=== PATIENT | female | born 1990 | race Caucasian/White ===

== ENCOUNTER 2017-11-14 10:28 | Observation (INO) | payer MEDICAID ==
[~2017-11-14] VITALS: Ht 152.4 cm; Wt 59.0 kg
[2017-11-14] MEDS ORDERED: PREN-57 MT (11:11)
[2017-11-14] MEDS ORDERED: FERR-71 MT (11:13)
== END 2017-11-14 15:50 | disposition home or self-care (01) ==
LOC: L&D 10:28
PROVIDERS: ADMIT Specialist; ATTEND Specialist
DX: O26.892 Other specified pregnancy related conditions, second trimester (principal); R10.9 Unspecified abdominal pain; M54.5 Low back pain; Z3A.32 32 weeks gestation of pregnancy
CPT/HCPCS: 76805; 76818; 99281; G0378

== ENCOUNTER 2020-05-23 11:13 | Emergency (ER) | payer MEDICAID ==
[~2020-05-23] VITALS: Ht 162.6 cm; Wt 60.0 kg
[~2020-05-23 11:13] MED LIST: FERR-71 MT; PREN-57 MT
[2020-05-23] MEDS ORDERED: ACETAMINOPHEN 325MG TABLET PO ONE (12:15)
[2020-05-23] MEDS ORDERED: LIDOCAINE HCL/EPINEPHRINE 1%-EPI 1:100,000 20 ML VIAL INFIL ONE (12:30)
[2020-05-23] MEDS ORDERED: MORPHINE SULFATE 4 MG/ML CPJ (NOT FOR IM USE) IV ONE (12:30)
[2020-05-23 13:04] LABS: BASOPHILS % 0.2 % (0.0-2.0); EOSINOPHILS % 1.1 % (0.0-5.0); HEMATOCRIT. 41.2 % (36.0-48.0); HEMOGLOBIN. 14.1 g/dL (12.0-16.0); LYMPHOCYTES % 15.4 % (20.0-50.0); MEAN CORPUSCULAR HEMOGLOBIN 30.3 pg (28.0-32.0); MEAN CORPUSCULAR VOLUME 88.9 fL (81.0-99.0); MEAN PLATELET VOLUME 7.8 fl (7.4-10.4); MONOCYTES % 3.3 % (2.0-8.0); PLATELET 275 x1000/uL (130-400); RED BLOOD CELL COUNT 4.64 mill/uL (4.2-5.4); RED CELL DISTRIBUTION WIDTH 13.6 % (11.6-14.6)
[2020-05-23 13:12] LABS: CHLORIDE 109 mEq/L (98-107)
[2020-05-23 13:16] LABS: ETHANOL BLOOD < 10 mg/dL
[2020-05-23 14:20] VITALS: BP 122/66
== END 2020-05-23 14:52 | disposition home or self-care (01) ==
LOC: ER 11:29
DX: S01.01XA Laceration without foreign body of scalp, initial encounter (principal); V43.52XA Car driver injured in collision with other type car in traffic accident, initial encounter; Y93.89 Activity, other specified; Y92.89 Other specified places as the place of occurrence of the external cause; Y99.8 Other external cause status
CPT/HCPCS: 12001; 36415; 70450; 71045; 72125; 80053; 80320; 84484; 85025; 93005; 96374; 99285; A4217; J2270; J3490; Z7610; G0480

== ENCOUNTER 2020-06-05 20:54 | Emergency (ER) | payer MEDICAID ==
[~2020-06-05] VITALS: Ht 154.9 cm; Wt 61.0 kg
[2020-06-05] MEDS ORDERED: BACITRACIN ZINC OINT UDPKT TOP ONE (22:00)
[2020-06-05] MEDS ORDERED: CEPH500C2 MT (22:11)
[2020-06-05 22:15] VITALS: BP 124/86
== END 2020-06-05 22:31 | disposition home or self-care (01) ==
LOC: ER 20:54
DX: T81.30XA Disruption of wound, unspecified, initial encounter (principal); Y84.8 Other medical procedures as the cause of abnormal reaction of the patient, or of later complication, without mention of misadventure at the time of the procedure; Y92.89 Other specified places as the place of occurrence of the external cause; R03.0 Elevated blood-pressure reading, without diagnosis of hypertension
CPT/HCPCS: 99283; Z7610